=== PATIENT | female | born 1955 ===

== ENCOUNTER 2018-02-05 08:18 | Emergency (ER) | payer OTHER ==
[~2018-02-05] VITALS: Ht 162.6 cm; Wt 63.5 kg
[2018-02-05] MEDS ORDERED: PNEU16DI2 (08:28)
[2018-02-05] MEDS ORDERED: ZANTAC150 MG PO (11:15)
[2018-02-05] MEDS ORDERED: INTESTINEX680 M1 PO (11:15)
[2018-02-05] MEDS ORDERED: CIPRO500 MG PO (11:15)
[2018-02-05] MEDS ORDERED: FLAGYL500MG PO (11:15)
== END 2018-02-05 14:48 | disposition home or self-care (01) ==
LOC: ER 08:18
DX: K52.9 Noninfective gastroenteritis and colitis, unspecified (principal)

== ENCOUNTER 2018-02-07 10:41 | Emergency (ER) | payer OTHER ==
[~2018-02-07] VITALS: Ht 162.6 cm; Wt 65.8 kg
[~2018-02-07 10:41] MED LIST: CIPRO500 MG PO; FLAGYL500MG PO; INTESTINEX680 M1 PO; PNEU16DI2; ZANTAC150 MG PO
== END 2018-02-07 17:23 | disposition home or self-care (01) ==
LOC: ER 10:41
DX: K52.9 Noninfective gastroenteritis and colitis, unspecified (principal)

== ENCOUNTER 2019-02-28 19:03 | Emergency (ER) | payer OTHER ==
[~2019-02-28] VITALS: Ht 162.6 cm; Wt 62.6 kg
[2019-02-28] MEDS ORDERED: ULTRACET PO (22:28)
== END 2019-02-28 23:00 | disposition home or self-care (01) ==
LOC: ER 19:03
DX: K57.92 Diverticulitis of intestine, part unspecified, without perforation or abscess without bleeding (principal); R10.11 Right upper quadrant pain